=== PATIENT | male | born 1985 | race Caucasian/White ===

== ENCOUNTER 2017-10-28 19:21 | Emergency (ER) | payer MEDICAID ==
[~2017-10-28] VITALS: Ht 188 cm; Wt 136.4 kg
[2017-10-28 19:21] VITALS: BP 147/86
[~2017-10-28 19:21] MED LIST: HYDR1TAB12 PO; PANT20TA2 PO; RANI150C PO
[2017-10-28] MEDS ORDERED: ALBUTEROL SULFATE 2.5 MG/3 ML NPPB ONE (19:30)
[2017-10-28] MEDS ORDERED: ALBUTEROL SULFATE 2.5 MG/3 ML ONE (19:45)
== END 2017-10-28 20:19 | disposition home or self-care (01) ==
LOC: ED 19:55
DX: J20.8 Acute bronchitis due to other specified organisms (principal); B96.89 Other specified bacterial agents as the cause of diseases classified elsewhere; R05 Cough; E11.9 Type 2 diabetes mellitus without complications
CPT/HCPCS: 71046; 94640; 99284; J7512; J7613

== ENCOUNTER 2017-12-08 17:25 | Emergency (ER) | payer MEDICAID ==
[~2017-12-08] VITALS: Ht 188 cm; Wt 133.4 kg
[2017-12-08] MEDS ORDERED: ONDANSETRON ODT 8 MG PO ONE (18:30)
[2017-12-08 18:39] LABS: BASOPHILS # (AUTO) 0.02 x10^3/uL (0-0.1); BASOPHILS % (AUTO) 0 % (0-1); EOSINOPHILS # (AUTO) 0.15 x10^3/uL (0-0.4); EOSINOPHILS % (AUTO) 2 % (1-7); LYMPHOCYTES # (AUTO) 2.21 x10^3/uL (1-3.4); LYMPHOCYTES % (AUTO) 29 % (22-44); MD NO; MEAN CORPUSCULAR HEMOGLOBIN 30.4 pg (27.5-34.5); MEAN CORPUSCULAR VOLUME 89.4 fL (81-97); MEAN PLATELET VOLUME 8.8 fL (7.4-10.4); MONOCYTES # (AUTO) 0.49 x10^3/uL (0.2-0.8); MONOCYTES % (AUTO) 7 % (2-9); NEUTROPHILS # (AUTO) 4.74 x10^3/uL (1.8-6.8); NEUTROPHILS % (AUTO) 62 % (42-75); PLATELET COUNT 186 x10^3/uL (130-400); RED BLOOD COUNT 5.64 x10^6/uL (4.38-5.82); RED CELL DISTRIBUTION WIDTH 14.2 % (9.4-14.8)
[2017-12-08 18:42] LABS: ALANINE AMINOTRANSFERASE 44 U/L (12-78); ALBUMIN 3.5 g/dL (3.4-5.0); ANION GAP 5 mmol/L (5-15); CALCIUM 8.2 mg/dL (8.5-10.1); CHLORIDE 111 mmol/L (98-107); CREATININE 0.89 mg/dL (0.7-1.3)
[2017-12-08 18:44] LABS: ALKALINE PHOSPHATASE 54 U/L (45-117); BILIRUBIN,TOTAL 0.4 mg/dL (0.2-1.0); TOTAL PROTEIN 6.6 g/dL (6.4-8.2)
[2017-12-08 18:49] LABS: MICROSCOPIC NOT IND
[2017-12-08 18:50] LABS: CULTURE INDICATED? NO
[2017-12-08 19:26] VITALS: BP 124/61
== END 2017-12-08 19:26 | disposition home or self-care (01) ==
LOC: ED 19:00
DX: R10.13 Epigastric pain (principal); R11.2 Nausea with vomiting, unspecified; B34.9 Viral infection, unspecified; F17.200 Nicotine dependence, unspecified, uncomplicated
CPT/HCPCS: 36415; 80053; 81003; 83690; 85025; 93005; 99285

== ENCOUNTER 2018-02-17 17:15 | Emergency (ER) | payer OTHER, MEDICAID ==
[2018-02-17] MEDS ORDERED: ONDANSETRON ODT 4 MG ONE (17:58)
[2018-02-17] MEDS ORDERED: MAALOX/HYOSCYAMINE/LIDOCAINE 45 ML BTL ONE (17:58)
[2018-02-17] MEDS ORDERED: ONDANSETRON ODT 4 MG PO ONE (18:00)
[2018-02-17] MEDS ORDERED: MAALOX/HYOSCYAMINE/LIDOCAINE 45 ML BTL PO ONE (18:00)
[2018-02-17 18:03] LABS: BASOPHILS # (AUTO) 0.05 x10^3/uL (0-0.1); BASOPHILS % (AUTO) 1 % (0-1); EOSINOPHILS # (AUTO) 0.15 x10^3/uL (0-0.4); EOSINOPHILS % (AUTO) 2 % (1-7); LYMPHOCYTES # (AUTO) 2.68 x10^3/uL (1-3.4); LYMPHOCYTES % (AUTO) 28 % (22-44); MD NO; MEAN CORPUSCULAR HEMOGLOBIN 30.1 pg (27.5-34.5); MEAN CORPUSCULAR HGB CONC 33.7 g/dL (33.2-36.2); MEAN CORPUSCULAR VOLUME 89.3 fL (81-97); MONOCYTES # (AUTO) 0.76 x10^3/uL (0.2-0.8); MONOCYTES % (AUTO) 8 % (2-9); NEUTROPHILS # (AUTO) 6.07 x10^3/uL (1.8-6.8); NEUTROPHILS % (AUTO) 63 % (42-75); PLATELET COUNT 170 x10^3/uL (130-400); RED BLOOD COUNT 5.88 x10^6/uL (4.38-5.82); RED CELL DISTRIBUTION WIDTH 13.6 % (9.4-14.8)
[2018-02-17 18:08] LABS: ALANINE AMINOTRANSFERASE 44 U/L (12-78); ALBUMIN 3.9 g/dL (3.4-5.0); ANION GAP 8 mmol/L (5-15); CALCIUM 8.6 mg/dL (8.5-10.1); CHLORIDE 110 mmol/L (98-107); CREATININE 1.08 mg/dL (0.7-1.3)
[2018-02-17 18:10] LABS: ALKALINE PHOSPHATASE 61 U/L (45-117); BILIRUBIN,TOTAL 0.6 mg/dL (0.2-1.0); TOTAL PROTEIN 7.1 g/dL (6.4-8.2)
[2018-02-17 18:30] LABS: TROPONIN I < 0.015 ng/mL (0.000-0.045)
[2018-02-17] MEDS ORDERED: PLEASE ENTER WEIGHT MC SCH (18:30)
[2018-02-17 19:03] VITALS: BP 116/71
[2018-02-17] MEDS ORDERED: ACETAMINOPHEN 500 MG TABLET ONE (19:34)
[2018-02-17] MEDS ORDERED: ACETAMINOPHEN 500 MG TABLET PO ONE (20:00)
[2018-02-17] MEDS ORDERED: ACETAMINOPHEN 325 MG TABLET PO ONE (20:00)
== END 2018-02-17 19:59 | disposition home or self-care (01) ==
LOC: ED 19:20
DX: R10.13 Epigastric pain (principal); E11.9 Type 2 diabetes mellitus without complications; F17.200 Nicotine dependence, unspecified, uncomplicated
CPT/HCPCS: 36415; 76700; 80053; 83690; 84484; 85025; 93005; 99285; Q0162

== ENCOUNTER 2018-04-30 08:58 | Emergency (ER) | payer MEDICAID, OTHER ==
[~2018-04-30] VITALS: Ht 188 cm; Wt 124.4 kg
[2018-04-30] MEDS ORDERED: SODIUM CHLORIDE 0.9% 1,000ML IVBOLUS ONE (09:00)
[2018-04-30] MEDS ORDERED: SODIUM CHLORIDE 0.9% 1,000 ML IV ONE (09:00)
[2018-04-30] MEDS ORDERED: PANTOPRAZOLE 40 MG IV IVPush ONE (09:00)
[2018-04-30] MEDS ORDERED: SODIUM CHLORIDE FLUSH 10ML SYR IVF ONE (09:00)
[2018-04-30] MEDS ORDERED: PANTOPRAZOLE 40 MG IV ONE (09:04)
[2018-04-30 09:19] LABS: BASOPHILS # (AUTO) 0.03 x10^3/uL (0-0.1); BASOPHILS % (AUTO) 0 % (0-1); EOSINOPHILS # (AUTO) 0.05 x10^3/uL (0-0.4); EOSINOPHILS % (AUTO) 0 % (1-7); LYMPHOCYTES # (AUTO) 2.26 x10^3/uL (1-3.4); LYMPHOCYTES % (AUTO) 18 % (22-44); MD NO; MEAN CORPUSCULAR HEMOGLOBIN 30.1 pg (27.5-34.5); MEAN CORPUSCULAR HGB CONC 33.8 g/dL (33.2-36.2); MEAN CORPUSCULAR VOLUME 89.2 fL (81-97); MEAN PLATELET VOLUME 8.6 fL (7.4-10.4); MONOCYTES # (AUTO) 0.64 x10^3/uL (0.2-0.8); MONOCYTES % (AUTO) 5 % (2-9); NEUTROPHILS # (AUTO) 9.26 x10^3/uL (1.8-6.8); NEUTROPHILS % (AUTO) 76 % (42-75); PLATELET COUNT 220 x10^3/uL (130-400); RED BLOOD COUNT 5.71 x10^6/uL (4.38-5.82)
[2018-04-30 09:27] LABS: ALANINE AMINOTRANSFERASE 45 U/L (12-78); ANION GAP 9 mmol/L (5-15); CALCIUM 8.8 mg/dL (8.5-10.1); CHLORIDE 105 mmol/L (98-107); CREATININE 1.17 mg/dL (0.7-1.3)
[2018-04-30 09:30] LABS: ALKALINE PHOSPHATASE 61 U/L (45-117); BILIRUBIN,TOTAL 0.7 mg/dL (0.2-1.0); TOTAL PROTEIN 7.4 g/dL (6.4-8.2)
[2018-04-30] MEDS ORDERED: PLEASE ENTER WEIGHT MC SCH (09:30)
[2018-04-30 11:14] LABS: MICROSCOPIC NOT IND
[2018-04-30 11:16] LABS: CULTURE INDICATED? NO
[2018-04-30 11:45] VITALS: BP 113/68
== END 2018-04-30 11:48 | disposition home or self-care (01) ==
LOC: ED 10:28
DX: K29.00 Acute gastritis without bleeding (principal); E11.9 Type 2 diabetes mellitus without complications; F17.200 Nicotine dependence, unspecified, uncomplicated
CPT/HCPCS: 36415; 74021; 76700; 80053; 81003; 83690; 85025; 86677; 96361; 96374; 99285; C9113; J7030

== ENCOUNTER 2020-06-22 15:34 | Emergency (ER) | payer MEDICAID, OTHER ==
[~2020-06-22] VITALS: Ht 188 cm; Wt 120.2 kg
[~2020-06-22 15:34] MED LIST changes: -HYDR1TAB12 PO; +HYDR1TAB13 PO
[2020-06-22 15:42] VITALS: BP 128/82
--- NOTE | 2020-06-22 19:07 | NUR ---
[employer]: CALLED FOR PT. PT NOT IN LOBBY AT THIS TIME.
--- NOTE | 2020-06-22 19:25 | NUR ---
CALLED FOR PT. PT NOT IN LOBBY.
--- NOTE | 2020-06-22 20:07 | NUR ---
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 PT NOT IN LOBBY OR IN LOBBY RESTROOMS.
== END 2020-06-22 20:10 | disposition left against medical advice (07) ==
LOC: ED 19:30
DX: R10.84 Generalized abdominal pain (principal)
CPT/HCPCS: 99281